=== PATIENT | male | born 1970 | race Hispanic/Latino ===

== ENCOUNTER 2019-06-28 12:03 | Day surgery (SDC) | payer OTHER ==
[2019-06-28] MEDS ORDERED: SODIUM CHLORIDE 0.9% 1000 ML 1,000 ML IV SCH (13:00)
--- NOTE | 2019-06-28 13:10 | Anesthesia Consultation ---
Anesthesia Consult and Med Hx Date of service: 06/28/19 - Airway Anesthetic Teeth Evaluation: Good ROM Head & Neck: Adequate Mental/Hyoid Distance: Adequate Mallampati Class: Class II Intubation Access Assessment: Good - Pulmonary Exam CTA: Yes - Cardiac Exam Cardiac Exam: RRR - Pre-Operative Health Status ASA Pre-Surgery Classification: ASA3 Proposed Anesthetic Plan: General (DM, HTN) - Pulmonary Hx Smoking: Yes (STOPPED X 10 YRS) Hx Sleep Apnea: No (LUCAS PRE SCREEN LOW RISK.) - Cardiovascular System Hx Hypertension: Yes (X 10 YRS) - Other Systems Hx Alcohol Use: Yes (2-3 DRINKS PER DAY) Hx Cancer: No
--- NOTE | 2019-06-28 13:10 | Anesthesia Day of Surgery ---
Anesthesia Day of Surgery - Day of Surgery Patient Examined: Yes Patient H&P Reviewed: Yes Patient is NPO: Yes
[2019-06-28] MEDS ORDERED: ONDANSETRON 4 MG/2 ML INJ IV PRN (13:11)
[2019-06-28] MEDS ORDERED: HYDROmorphone 1 MG/1 ML INJ IV PRN (13:11)
[2019-06-28] MEDS ORDERED: MIDAZOLAM 2 MG/2 ML INJ IV NR (14:00)
[2019-06-28] MEDS ORDERED: PROPOFOL 200 MG/20 ML VIAL IV ONE (14:03)
[2019-06-28] MEDS ORDERED: fentaNYL 100 MCG/2 ML INJ ONE (14:03)
[2019-06-28] MEDS ORDERED: LIDOCAINE MPF (2%) 20 MG/1 ML VIAL 5 ML ONE (14:03)
[2019-06-28] MEDS ORDERED: ceFAZolin/STERILE WATER 2 GM/20 ML SYRINGE IV NR (14:08)
[2019-06-28] MEDS ORDERED: GLYCOPYRROLATE 0.4 MG/2 ML INJ ONE (14:52)
[2019-06-28] MEDS ORDERED: WATER FOR IRRIG STERILE 2000 ML IR ONE (15:23)
--- NOTE | 2019-06-28 15:43 | Short Stay Summary ---
Short Stay Documentation Date of service: 06/28/19 - History H&P: obtained from office - Allergies and Medications Current Medications: Allergies No Known Allergies Allergy (Verified 06/27/19 16:40) Home Medications Medication Instructions Recorded Confirmed Last Taken Type Aspirin [Adult Aspirin] 81 mg PO DAILY 06/27/19 06/27/19 06/26/19 History Lisinopril [Zestril TAB] 30 mg PO QDAY 06/27/19 06/28/19 06/28/19 10:00 History Metformin HCl [metFORMIN] 1,000 mg PO BID 06/27/19 06/27/19 06/27/19 History Metoprolol [Lopressor] 25 mg PO DAILY 06/27/19 06/28/19 06/27/19 21:00 History Oxycodone HCl/Acetaminophen 1 each PO Q6HR PRN 06/27/19 06/27/19 06/27/19 History [Percocet 2.5/325 mg] Tamsulosin [Flomax] 0.4 mg PO QDAY 06/27/19 06/27/19 06/27/19 History Active Medications Cefazolin Sodium (Ancef/Sterile Water 2 Gm/20 Ml) 2 gm IV PREOP NR Stop: 06/28/19 23:59 Hydromorphone HCl (Dilaudid) 0.25 mg IV Q10MIN PRN PRN Reason: Pain, Moderate (4-6) Sodium Chloride (Nacl 0.9% 1000 Ml) 1,000 mls @ 100 mls/hr IV DIRECT ANKIT Last Admin: 06/28/19 13:05 Dose: 100 mls/hr Documented by: Midazolam HCl (Versed) 2 mg IV PREOP NR Stop: 06/28/19 23:59 Last Admin: 06/28/19 13:30 Dose: 2 mg Documented by: Ondansetron HCl (Zofran) 4 mg IV ONCE PRN PRN Reason: Nausea And Vomiting - Brief post op/procedure progress note Date of procedure: 06/28/19 Pre-op diagnosis: right ureteral Post-op diagnosis: same Procedure: cysto, rpg, DVIU, RT UETEROSCOPY, STENT, URETERAL DILATION,(INTERNAL STRING) Anesthesia: GETA Surgeon: RODRIGO MCCRAY Estimated blood loss: minimal Condition: stable - Hospital course Hospital course: Bactrim on chart (pt has flomax, ultram,norco) - Disposition Condition at discharge: Stable Disposition: DC-01 TO HOME OR SELFCARE Short Stay Discharge Plan Follow up with: DEIRDRE MORRIS MD [Primary Care Provider] - 7 Days
--- NOTE | 2019-06-28 16:35 | Fluoroscopy Report ---
FLUOROSCOPY RETROGRADE UROGRAPHY FLUOROSCOPY RETROGRADE URETHROGRAM HISTORY: Urethral stricture FINDINGS: Fluoroscopy was provided by radiology during retrograde urography by the urologist. The left retrograde pyelogram is within normal limits. A filling defect consistent with a right urete ral stone was identified. Subsequent images demonstrate right ureteroscopy and placement of a right u reteral stent. There is good drainage of the right renal collecting system on the final image. Retrograde urethrogram images are limited but suggest a stricture in the mid urethra. Please correlat e with the procedural report by urology. IMPRESSION: Right ureteral stone. Right ureteral stent placement. Urethral stricture. Fluoroscopy time: 1.5 minutes Fluoroscopic images: 15 Signer Name: Usman Salcido Jr, MD Signed: 06/28/2019 4:30 PM Workstation Name: [id number]
[2019-06-28 17:17] VITALS: BP 176/96
--- NOTE | 2019-06-28 20:07 | Operative Report ---
PREOPERATIVE DIAGNOSIS: Right proximal ureteral stone, 8 mm. POSTOPERATIVE DIAGNOSIS: Right renal stone, right ureteral stricture, urethral stricture PROCEDURE: Cystoscopy, direct vision internal urethrotomy, urethrogram, bilateral retrograde pyelograms, right ureteroscopy and dilation of ureter, double-J stent placement (6-Colombian 24 cm with an internal string). SURGEON: Ulisses Lake MD ANESTHESIA: General. Staged procedure. ANESTHESIA: General. SURGEON: Dr. Ulisses Lake. ESTIMATED BLOOD LOSS: Minimal. FLUIDS: Crystalloid. COMPLICATIONS: No complications. INDICATIONS: This patient is a 48-year-old gentleman seen in the office with right flank pain. CT of abdomen and pelvis revealed an 8 mm proximal ureteral stone. The patient has a history of diabetes, hypertension, no previous history of stones. No history of urinary tract infections. Discussed options of observation, lithotripsy and ureteroscopy. The patient agreed to proceed. His was present for the visit. DESCRIPTION OF PROCEDURE: The patient was taken to the operative suite, placed in a supine position. After adequate general anesthesia, placed in a dorsal lithotomy position, prepped and draped in a sterile fashion. Pancystourethroscopy was performed with a 22-Colombian Storz cystoscope. The patient had obvious tight bulbar stricture. Scope could not be advanced; 0.035 Glidewire was placed. Cold knife was used to make a cut at the 12 o'clock position, was able to advance the scope, had one narrow stricture. Prostate mild trilobar obstruction. Bladder, no tumors or stones were noted. Both ureteral orifices in normal position. Bilateral retrograde pyelograms were obtained with an 8 Colombian Sussy catheter and 8 mL of contrast. No filling defects or obstruction on the left, obvious 8 mm now renal pelvic stone, appeared to have some narrowing of the ureter in 2 places in the mid to distal ureter and at the UPJ. Two 0.035 Glidewires were placed. Rigid ureteroscopy was performed. I was able to dilate the right ureteral stricture with the scope advanced up to the proximal ureter. A stone was not there. Again, I injected more dye and stone is now in the kidney. I removed the rigid scope, placed a flexible ureteroscope up into the renal pelvis, injected more dye. I was able to see a filling defect; however, looking at the different calices, it appeared to be in a lower pole guy that I could not access with the scope. Therefore, I put up 6-Colombian 26 cm double-J stent with an internal string. Bladder was drained. Rectal exam was benign. He was extubated and taken to recovery room. The patient will need staged right extracorporal shock wave lithotripsy. He has Cipro. He already has Flomax, [place] and Ultram. JOB# [id number] CHERRIE/VINCE MULLER
--- NOTE | 2019-06-28 23:36 | Post Anesthesia Evaluation ---
- Post Anesthesia Evaluation Patient Participated: Yes Airway Patent: Yes Stable Respiratory Function: Yes Nausea/Vomiting: No Temp > 96.8F: Yes Pain Manageable: Yes Adequeate Hydration: Yes Anesthesia Complications: No Block Receding Appropriately: Not Applicable Patient on Ventilator: No
== END 2019-06-28 12:04 | disposition home or self-care (01) ==
LOC: OR 12:03
PROVIDERS: ATTEND Urology
DX: N20.1 Calculus of ureter (principal); N35.819 Other urethral stricture, male, unspecified site; I10 Essential (primary) hypertension; E11.9 Type 2 diabetes mellitus without complications; E78.00 Pure hypercholesterolemia, unspecified; Z79.82 Long term (current) use of aspirin; Z87.891 Personal history of nicotine dependence; Z79.84 Long term (current) use of oral hypoglycemic drugs; Z98.890 Other specified postprocedural states; Z72.89 Other problems related to lifestyle
CPT/HCPCS: 51610; 52276; 52332; 74420; 82962; A4217; C1758; C1769; C2617; J0690; J1170; J2250; J2704; J3010; J7030; Q9967; 74450